=== PATIENT | male | born 1970 | race Two or more races ===

== ENCOUNTER 2023-08-18 13:59 | Inpatient (IN) | payer OTHER ==
[~2023-08-18] VITALS: Ht 170.2 cm; Wt 75.0 kg
[~2023-08-18 13:59] MED LIST: ETOMIDATE 2 MG/ML 10 ML VIAL ONE
[2023-08-18] MEDS: LORazepam 2 MG/ML VIAL IVP ONE ×2 (15:14→16:14)
[2023-08-18] MEDS: SODIUM CHLORIDE 0.9% 2,000 ML IV ONE (15:18)
[2023-08-18 15:28] LABS: BASOPHILS % (AUTO) 0.8 % (0.0-2.0); EOSINOPHILS % (AUTO) 2.2 % (1.0-6.0); HEMATOCRIT 24.8 % (41-53); LYMPHOCYTES # (AUTO) 1.2 K/uL (1.0-4.8); LYMPHOCYTES % (AUTO) 22.2 % (22.0-44.0); MEAN CORPUSCULAR HEMOGLOBIN 29.2 pg (26.0-34.0); MEAN CORPUSCULAR HGB CONC 32.3 G/dL (31.0-37.0); MEAN CORPUSCULAR VOLUME 90 fL (80-100); MONOCYTES # (AUTO) 0.7 K/uL (0.1-1.0); MONOCYTES % (AUTO) 13.6 % (2.0-9.0); NEUTROPHILS # (AUTO) 3.4 K/uL (1.8-7.7); NEUTROPHILS % (AUTO) 61.2 % (40.0-70.0); PLATELET COUNT (AUTO) 225 K/uL (150-450); RED BLOOD CELL COUNT(AUTO) 2.75 MIL/uL (4.50-5.90); WHITE BLOOD COUNT (AUTO) 5.5 K/uL (4.5-11.0)
[2023-08-18 15:38] LABS: ALCOHOL, BLOOD (SERUM) < 3 mg/dL (0-10)
[2023-08-18 15:45] LABS: TROPONIN I-HIGH SENSITIVITY 56 ng/L (<76)
[2023-08-18 15:48] LABS: LACTIC ACID 1.2 mmol/L (0.4-2.0)
[2023-08-18 16:04] LABS: RBC MORPHOLOGY COMMENT ABNORMAL RBC MORPH
[2023-08-18 16:12] LABS: INR 1.1 (0.9-1.1); PROTHROMBIN TIME 11.9 SEC (9.4-11.6)
[2023-08-18 16:33] LABS: ABG BASE EXCESS -9.3 mmol/L (-2.0-3.0); ABG CARBOXYHEMOGLOBIN 0.4 % (0.0-1.5); ABG HCO3 16.9 mmol/L (22.0-26.0); ABG METHEMOGLOBIN 0.5 % (0.0-1.5); ABG OXYGEN CONTENT 5.7 mL/dL (15.0-23.0); ABG OXYHEMOGLOBIN 44.3 % (94.0-100.0); ABG PCO2 32 mmHg (35-45); ABG PH 7.334 (7.35-7.450); ABG TOTAL HEMOGLOBIN 9.1 G/dL (12.0-18.0); TEMPERATURE, FAHRENHEIT, BG 98.6 FAHREN (96.0-98.6)
[2023-08-18] MEDS ORDERED: ROCURONIUM BROMIDE 10 MG/ML 5 ML VIAL ONE (16:40)
[2023-08-18 17:06] LABS: ANION GAP 14 mmol/L (8-16); CALCIUM, TOTAL 7.9 mg/dL (8.8-10.5); CARBON DIOXIDE 17 mmol/L (22-29); CHLORIDE 105 mmol/L (98-107); CREATININE 1.73 mg/dL (0.60-1.30); GLOMERULAR FILTR. RATE CALC 42 mL/min (>60); GLUCOSE,RANDOM 121 mg/dL (70-110); SODIUM SERUM 136 mmol/L (136-145); UREA NITROGEN, BLOOD 32 mg/dL (7-18)
[2023-08-18] MEDS: PROPOFOL 1000 MG/ISO-OSM 100 ML IV PRN (17:09)
[2023-08-18 17:10] VITALS: PULSE 105; RESP 18; O2SAT 100
[2023-08-18 17:11] LABS: ALANINE AMINOTRANSFERASE 47 U/L (12-78); ALBUMIN 2.8 g/dL (3.4-5.0); ALKALINE PHOSPHATASE 186 U/L (46-116); ASPARTATE AMINOTRANSFERASE 47 U/L (15-37); BILIRUBIN,TOTAL 0.7 mg/dL (0.1-1.0); CREATINE KINASE, TOTAL ONLY 125 U/L (39-308); LIPASE 122 U/L (16-77); TOTAL PROTEIN, SERUM 8.7 g/dL (6.4-8.2)
[2023-08-18 17:22] LABS: ABG OXYGEN SATURATION 44.7 % (95.0-98.0)
[2023-08-18 17:23] LABS: O2 DEVICE,BLOOD GAS ROOM AIR (ROOM AIR); PO2, ARTERIAL BG 30.6 mmHg (84.0-92.0); SITE, BLOOD GAS RT BRACHIAL; SOURCE, BLOOD GAS VENOUS
[2023-08-18] MEDS: VANCOMYCIN 1GM/WATER(PEG/NADA) 200 ML IV ONE (17:37)
[2023-08-18] MEDS: SODIUM CHLORIDE 0.9% 2,050 ML IV ONE (17:37)
[2023-08-18 17:39] LABS: COVID AG,FIA SOURCE NASAL SWAB
[2023-08-18 18:06] LABS: SARS-COV2 (COVID) ANTIGEN,FIA Negative (Negative)
[2023-08-18 18:47] LABS: APPEARANCE,URINE CLEAR (CLEAR); BILIRUBIN,URINE NEGATIVE (NEGATIVE); COLOR,URINE YELLOW (YELLOW); GLUCOSE, URINE (UA) NEGATIVE (NEGATIVE); KETONES,URINE NEGATIVE (NEGATIVE); LEUKOCYTE ESTERASE ,URINE NEGATIVE (NEGATIVE); NITRATE,URINE NEGATIVE (NEGATIVE); OCCULT BLOOD,URINE NEGATIVE (NEGATIVE); PH,URINE 5.5 (5.0-8.0); PH,URINE DRUG SCREEN 5.5 (5.0-8.0); PROTEIN,URINE 100-200,SEE CONFIRM mg/dL (NEGATIVE); SPECIFIC GRAVITIY, URINE 1.021 (1.003-1.030); UROBILINOGEN,URINE <=1.0 mg/dL (<=1.0)
[2023-08-18 18:52] LABS: RBC,URINE 0-2 /HPF (0-2); SULFOSALICYLIC ACID,URINE 2+ (Negative); WBC,URINE 0-2 /HPF (0-5)
[2023-08-18 18:53] LABS: ALCOHOL, URINE DRUG SCREEN NEGATIVE (NEGATIVE); AMPHET/METH SCREEN,URINE POSITIVE (NEGATIVE); BACTERIA,URINE Few /HPF (None Seen); BARBITURATE SCREEN, URINE NEGATIVE (NEGATIVE); BENZODIAZEPINES SCREEN,URINE NEGATIVE (NEGATIVE); CANNABINOID SCREEN,URINE NEGATIVE (NEGATIVE); COCAINE SCREEN,URINE NEGATIVE (NEGATIVE); METHADONE SCREEN, URINE NEGATIVE (NEGATIVE); OPIATE SCREEN,URINE NEGATIVE (NEGATIVE); PHENCYCLIDINE SCREEN,URINE NEGATIVE (NEGATIVE); SQUAMOUS EPITHELIAL CELL,UR Rare /LPF (None Seen)
[2023-08-18 19:00] VITALS: PULSE 97; RESP 22; O2SAT 100
[2023-08-18 20:22] LABS: ABG BASE EXCESS -9.6 mmol/L (-2.0-3.0); ABG CARBOXYHEMOGLOBIN 0.6 % (0.0-1.5); ABG HCO3 17.4 mmol/L (22.0-26.0); ABG METHEMOGLOBIN 0.1 % (0.0-1.5); ABG OXYGEN CONTENT 12.9 mL/dL (15.0-23.0); ABG OXYGEN SATURATION 99.4 % (95.0-98.0); ABG OXYHEMOGLOBIN 98.7 % (94.0-100.0); ABG PCO2 34 mmHg (35-45); ABG PH 7.307 (7.35-7.450); PO2, ARTERIAL BG 186.6 mmHg (84.0-92.0); SOURCE, BLOOD GAS ARTERIAL; TEMPERATURE, FAHRENHEIT, BG 98.6 FAHREN (96.0-98.6)
[2023-08-18 20:25] LABS: ABG A-A DIFF O2 131.4 mmHg (10-20.0); ALLEN TEST, BLOOD GAS Positive; O2 DEVICE,BLOOD GAS VENT (ROOM AIR); PEEP,BG 5 cm H2O; SITE, BLOOD GAS LR`; VT, ABG 420 ml
[2023-08-18 22:25] VITALS: PULSE 80; RESP 25; O2SAT 100
[2023-08-18] MEDS: MIDAZOLAM HCL 100 MG in SODIUM CHLORIDE 0.9% 180 ML IV PRN (23:02)
[2023-08-18] MEDS ORDERED: BISACODYL 10 MG RECTAL RECTAL SUPPOSITORY PR PRN (23:45)
[2023-08-18] MEDS ORDERED: ALBUTEROL SULFATE 2.5 MG/0.5 ML NEB SOLUTION NEB PRN (23:45)
[2023-08-18] MEDS ORDERED: IPRATROPIUM BROMIDE 0.5 MG/2.5 ML NEB SOLUTION NEB PRN (23:45)
[2023-08-18] MEDS ORDERED: MAGNESIUM HYDROXIDE SUSPENSION 30 ML UDCUP PO PRN (23:45)
[2023-08-18] MEDS ORDERED: ONDANSETRON HCL 4 MG/2 ML VIAL IVP PRN (23:45)
[2023-08-18] MEDS: HEPARIN SODIUM,PORCINE 5,000 UNITS/ML VIAL SQ SCH (23:56)
[2023-08-19] VITALS (15 sets, daily range): BP systolic 127–148; BP diastolic 72–95; PULSE 72–88; RESP 18–29; TEMP 98.1–99.1; O2SAT 97–100
[2023-08-19] MEDS: DEXMEDETOMIDINE HCL 400 MCG in SODIUM CHLORIDE 0.9% 96 ML IV PRN (01:46)
[2023-08-19] MEDS: PROPOFOL 1000 MG/ISO-OSM 100 ML IV PRN (08:01)
[2023-08-19] MEDS: PANTOPRAZOLE SODIUM 40 MG/VIAL IVP SCH (08:48)
[2023-08-19] MEDS: DOCUSATE SODIUM 100 MG CAPSULE PO SCH (09:00)
[2023-08-19 10:00] LABS: CALCIUM, TOTAL 7.6 mg/dL (8.8-10.5); CREATININE 1.35 mg/dL (0.60-1.30); POTASSIUM 4.1 mmol/L (3.5-5.1)
[2023-08-19 10:06] LABS: ALBUMIN 2.3 g/dL (3.4-5.0); BILIRUBIN,TOTAL 0.8 mg/dL (0.1-1.0); TOTAL PROTEIN, SERUM 7.8 g/dL (6.4-8.2)
[2023-08-19 10:25] LABS: BASOPHILS % (AUTO) 0.7 % (0.0-2.0); EOSINOPHILS % (AUTO) 3.2 % (1.0-6.0); HEMATOCRIT 24.4 % (41-53); HEMOGLOBIN 7.9 g/dL (13.5-17.5); LYMPHOCYTES # (AUTO) 1.1 K/uL (1.0-4.8); LYMPHOCYTES % (AUTO) 19.5 % (22.0-44.0); MEAN CORPUSCULAR HEMOGLOBIN 29.2 pg (26.0-34.0); MEAN CORPUSCULAR HGB CONC 32.2 G/dL (31.0-37.0); MEAN CORPUSCULAR VOLUME 91 fL (80-100); MONOCYTES # (AUTO) 0.7 K/uL (0.1-1.0); MONOCYTES % (AUTO) 11.5 % (2.0-9.0); NEUTROPHILS # (AUTO) 3.7 K/uL (1.8-7.7); NEUTROPHILS % (AUTO) 65.1 % (40.0-70.0); PLATELET COUNT (AUTO) 201 K/uL (150-450); RED CELL DISTRIBUTION WIDTH 24.6 % (11.5-14.5); WHITE BLOOD COUNT (AUTO) 5.7 K/uL (4.5-11.0)
[2023-08-19] MEDS: PIPERACILLIN/TAZO 3.375 GM/D5W 50 ML IV SCH (11:19)
[2023-08-19 13:02] LABS: ABG BASE EXCESS -10.4 mmol/L (-2.0-3.0); ABG CARBOXYHEMOGLOBIN 0.5 % (0.0-1.5); ABG METHEMOGLOBIN 0.2 % (0.0-1.5); ABG OXYGEN CONTENT 12.9 mL/dL (15.0-23.0); ABG OXYGEN SATURATION 95.7 % (95.0-98.0); ABG PCO2 29 mmHg (35-45); ABG PH 7.339 (7.35-7.450); ABG TOTAL HEMOGLOBIN 9.6 G/dL (12.0-18.0); PO2, ARTERIAL BG 90.3 mmHg (84.0-92.0); SOURCE, BLOOD GAS ARTERIAL; TEMPERATURE, FAHRENHEIT, BG 99.7 FAHREN (96.0-98.6)
[2023-08-19 13:03] LABS: ABG A-A DIFF O2 88.9 mmHg (10-20.0); O2 DEVICE,BLOOD GAS VENTILATOR (ROOM AIR); PEEP,BG 0 cm H2O; PRESSURE SUPPORT, BG 5 cm H2O; SITE, BLOOD GAS RT BRACHIAL; SPONTANEOUS VT, BG 422 ml; VENT MODE, BG Press. Support Vent. (ROOM AIR)
[2023-08-19] MEDS: VANCOMYCIN 1.75GM/WATER(PEG) 350 ML IV ONE (17:43)
[2023-08-20] VITALS (15 sets, daily range): BP systolic 108–154; BP diastolic 56–90; PULSE 56–84; RESP 18–28; TEMP 96–99.9; O2SAT 97–100
[2023-08-20] MEDS: ACETAMINOPHEN 325 MG TABLET PO PRN (00:45)
[2023-08-20] MEDS: DEXMEDETOMIDINE HCL 400 MCG in SODIUM CHLORIDE 0.9% 96 ML IV PRN (04:23)
[2023-08-20 06:20] LABS: CALCIUM, TOTAL 7.7 mg/dL (8.8-10.5); CREATININE 1.3 mg/dL (0.60-1.30); POTASSIUM 3.7 mmol/L (3.5-5.1)
[2023-08-20 09:02] LABS: HEMATOCRIT 28.6 % (41-53); HEMOGLOBIN 8.8 g/dL (13.5-17.5); MEAN CORPUSCULAR HEMOGLOBIN 28.9 pg (26.0-34.0); MEAN CORPUSCULAR HGB CONC 30.9 G/dL (31.0-37.0); MEAN CORPUSCULAR VOLUME 94 fL (80-100); PLATELET COUNT (AUTO) 199 K/uL (150-450); RED BLOOD CELL COUNT(AUTO) 3.06 MIL/uL (4.50-5.90); RED CELL DISTRIBUTION WIDTH 25.1 % (11.5-14.5); WHITE BLOOD COUNT (AUTO) 6.8 K/uL (4.5-11.0)
[2023-08-20] MEDS: VANCOMYCIN 1GM/WATER(PEG/NADA) 200 ML IV SCH (09:43)
[2023-08-20] MEDS: FUROSEMIDE 20 MG/2 ML VIAL IVP SCH (09:43)
[2023-08-20] MEDS: QUEtiapine FUMARATE 25 MG TABLET PEG SCH (09:44)
[2023-08-20] MEDS: LISINOPRIL 5 MG TABLET NG SCH (09:44)
[2023-08-20] MEDS: CARVEDILOL 3.125 MG TABLET NG SCH (09:44)
[2023-08-20 10:16] LABS: BAND NEUTROPHILS % (MANUAL) 1 % (0-5); LYMPHOCYTES % (MANUAL) 15 % (22-44); MONOCYTES % (MANUAL) 4 % (2-9); SEGMENTED NEUTROPHILS % 80 % (40-70); TOTAL CELLS COUNTED 100
[2023-08-20 10:21] LABS: RBC MORPHOLOGY COMMENT ABNORMAL R
[2023-08-21] VITALS (9 sets, daily range): BP systolic 123–151; BP diastolic 66–79; PULSE 65–88; RESP 13–22; TEMP 97.3–98.9; O2SAT 90–100
[2023-08-21 08:06] LABS: EOSINOPHILS % (AUTO) 4.7 % (1.0-6.0); HEMATOCRIT 31.3 % (41-53); HEMOGLOBIN 9.5 g/dL (13.5-17.5); LYMPHOCYTES # (AUTO) 1.6 K/uL (1.0-4.8); LYMPHOCYTES % (AUTO) 25.7 % (22.0-44.0); MEAN CORPUSCULAR HEMOGLOBIN 28.6 pg (26.0-34.0); MEAN CORPUSCULAR HGB CONC 30.5 G/dL (31.0-37.0); MEAN CORPUSCULAR VOLUME 94 fL (80-100); MONOCYTES # (AUTO) 0.7 K/uL (0.1-1.0); MONOCYTES % (AUTO) 10.5 % (2.0-9.0); NEUTROPHILS # (AUTO) 3.7 K/uL (1.8-7.7); NEUTROPHILS % (AUTO) 59.1 % (40.0-70.0); PLATELET COUNT (AUTO) 136 K/uL (150-450); RED BLOOD CELL COUNT(AUTO) 3.34 MIL/uL (4.50-5.90); RED CELL DISTRIBUTION WIDTH 25.3 % (11.5-14.5); WHITE BLOOD COUNT (AUTO) 6.3 K/uL (4.5-11.0)
[2023-08-21 08:23] LABS: CREATININE 1.33 mg/dL (0.60-1.30); POTASSIUM 3.8 mmol/L (3.5-5.1); TOTAL PROTEIN, SERUM 7.5 g/dL (6.4-8.2); VANCOMYCIN,RANDOM 32.7 mcg/mL (25.0-50.0)
[2023-08-21 08:42] LABS: RBC MORPHOLOGY COMMENT ABNORMAL RBC MORPH
[2023-08-21] MEDS ORDERED: VANCOMYCIN 1GM/WATER(PEG/NADA) 200 ML IV PRN (10:15)
[2023-08-21 12:19] LABS: ABG BASE EXCESS -7.9 mmol/L (-2.0-3.0); ABG CARBOXYHEMOGLOBIN 1.5 % (0.0-1.5); ABG OXYGEN CONTENT 18.3 mL/dL (15.0-23.0); ABG OXYGEN SATURATION 97.3 % (95.0-98.0); ABG OXYHEMOGLOBIN 95.8 % (94.0-100.0); ABG PCO2 30 mmHg (35-45); ABG PH 7.375 (7.35-7.450); ABG TOTAL HEMOGLOBIN 13.5 G/dL (12.0-18.0); ALLEN TEST, BLOOD GAS Positive; PO2, ARTERIAL BG 97.8 mmHg (84.0-92.0); SITE, BLOOD GAS RT RADIAL; SOURCE, BLOOD GAS ARTERIAL; TEMPERATURE, FAHRENHEIT, BG 97.8 FAHREN (96.0-98.6)
[2023-08-21 12:20] LABS: O2 DEVICE,BLOOD GAS VENTILATOR (ROOM AIR); PEEP,BG 0 cm H2O; PRESSURE SUPPORT, BG 8 cm H2O; VENT MODE, BG CPAP (ROOM AIR)
[2023-08-21 12:21] LABS: SPONTANEOUS VT, BG 537 ml
[2023-08-22] VITALS: BP 139/74; PULSE 92; RESP 17; TEMP 97.1
[2023-08-22] MEDS: ZOLPIDEM TARTRATE 5 MG TABLET PO PRN (00:09)
[2023-08-22 04:00] VITALS: BP 153/87; PULSE 94; RESP 19; TEMP 99
[2023-08-22 05:43] LABS: BASOPHILS % (AUTO) 0.8 % (0.0-2.0); EOSINOPHILS % (AUTO) 4.9 % (1.0-6.0); HEMATOCRIT 26.7 % (41-53); HEMOGLOBIN 8.5 g/dL (13.5-17.5); LYMPHOCYTES # (AUTO) 1.3 K/uL (1.0-4.8); LYMPHOCYTES % (AUTO) 22.9 % (22.0-44.0); MEAN CORPUSCULAR HEMOGLOBIN 28.9 pg (26.0-34.0); MEAN CORPUSCULAR HGB CONC 31.8 G/dL (31.0-37.0); MEAN CORPUSCULAR VOLUME 91 fL (80-100); MONOCYTES # (AUTO) 0.6 K/uL (0.1-1.0); MONOCYTES % (AUTO) 10.3 % (2.0-9.0); NEUTROPHILS # (AUTO) 3.5 K/uL (1.8-7.7); NEUTROPHILS % (AUTO) 61.1 % (40.0-70.0); PLATELET COUNT (AUTO) 173 K/uL (150-450); RED BLOOD CELL COUNT(AUTO) 2.94 MIL/uL (4.50-5.90); WHITE BLOOD COUNT (AUTO) 5.7 K/uL (4.5-11.0)
[2023-08-22 05:44] LABS: CALCIUM, TOTAL 8.1 mg/dL (8.8-10.5); CREATININE 1.33 mg/dL (0.60-1.30); POTASSIUM 3.4 mmol/L (3.5-5.1)
[2023-08-22 08:00] VITALS: BP 153/78; PULSE 89; PULSE 92; RESP 14; TEMP 97.4
[2023-08-22] MEDS: VANCOMYCIN 1.25 GM/WATER(PEG) 250 ML IV SCH (08:19)
[2023-08-22 12:00] VITALS: BP 157/85; PULSE 100; PULSE 88; RESP 16; TEMP 98.4
[2023-08-22] MEDS: CARVEDILOL 3.125 MG TABLET PO ONE (13:16)
[2023-08-22] MEDS: POTASSIUM CHLORIDE 20 MEQ ER TABLET PO ONE (13:16)
[2023-08-22 16:00] VITALS: BP 148/80; PULSE 84; RESP 12; TEMP 98.2
[2023-08-22 20:00] VITALS: BP 159/91; PULSE 85; RESP 10; TEMP 98.1
[2023-08-22] MEDS: CARVEDILOL 6.25 MG TABLET PO SCH (21:12)
[2023-08-23] VITALS: BP 143/89; PULSE 83; RESP 16; TEMP 98.3
[2023-08-23] MEDS: MORPHINE SULFATE 2 MG/ML SYRINGE IVP ONE (03:13)
[2023-08-23 04:00] VITALS: BP 160/93; PULSE 82; RESP 10; TEMP 98.4
[2023-08-23 07:18] LABS: CALCIUM, TOTAL 7.7 mg/dL (8.8-10.5); CREATININE 1.65 mg/dL (0.60-1.30); POTASSIUM 3.5 mmol/L (3.5-5.1)
[2023-08-23 08:00] VITALS: BP 198/99; PULSE 81; PULSE 88; RESP 18; TEMP 98.7
[2023-08-23 12:00] VITALS: BP 161/100; PULSE 81; RESP 16; TEMP 98.4
[2023-08-23] MEDS: BISMUTH SUBSALICYLATE 525 MG/30 ML SUSPENSION UDCUP PO PRN (14:10)
[2023-08-23 16:00] VITALS: BP 176/107; PULSE 87; RESP 16; TEMP 98.6
[2023-08-23 20:00] VITALS: BP 145/71; PULSE 84; RESP 18; TEMP 97.7
[2023-08-24 00:16] VITALS: BP 113/64; PULSE 83; RESP 16; TEMP 98
[2023-08-24 04:00] VITALS: BP 112/57; PULSE 85; RESP 14; TEMP 97.6
[2023-08-24 06:33] LABS: BASOPHILS % (AUTO) 0.4 % (0.0-2.0); EOSINOPHILS % (AUTO) 4.3 % (1.0-6.0); HEMATOCRIT 27.2 % (41-53); HEMOGLOBIN 8.8 g/dL (13.5-17.5); LYMPHOCYTES # (AUTO) 1.8 K/uL (1.0-4.8); LYMPHOCYTES % (AUTO) 27.3 % (22.0-44.0); MEAN CORPUSCULAR HEMOGLOBIN 28.4 pg (26.0-34.0); MEAN CORPUSCULAR HGB CONC 32.5 G/dL (31.0-37.0); MEAN CORPUSCULAR VOLUME 88 fL (80-100); MONOCYTES # (AUTO) 0.9 K/uL (0.1-1.0); MONOCYTES % (AUTO) 13.2 % (2.0-9.0); NEUTROPHILS # (AUTO) 3.7 K/uL (1.8-7.7); NEUTROPHILS % (AUTO) 54.8 % (40.0-70.0); PLATELET COUNT (AUTO) 166 K/uL (150-450); RED BLOOD CELL COUNT(AUTO) 3.11 MIL/uL (4.50-5.90); RED CELL DISTRIBUTION WIDTH 22.7 % (11.5-14.5); WHITE BLOOD COUNT (AUTO) 6.7 K/uL (4.5-11.0)
[2023-08-24 06:35] LABS: CREATININE 1.64 mg/dL (0.60-1.30); POTASSIUM 3.3 mmol/L (3.5-5.1)
[2023-08-24 06:43] LABS: RBC MORPHOLOGY COMMENT ABNORMAL RBC MORPH
[2023-08-24 08:00] VITALS: BP 159/98; PULSE 81; PULSE 86; RESP 16; TEMP 97.9
[2023-08-24] MEDS: POTASSIUM CHLORIDE 20 MEQ ER TABLET PO ONE (09:13)
[2023-08-24 15:00] VITALS: BP 145/90; PULSE 86; RESP 18; TEMP 97.6
[2023-08-24] MEDS ORDERED: SODIUM CHLORIDE 0.9% 500 ML IV ONE (17:46)
[2023-08-24] MEDS: VANCOMYCIN 500 MG/WATER(PEG) 100 ML IV ONE (18:06)
[2023-08-24 19:32] VITALS: BP 156/90; PULSE 100; RESP 18; TEMP 98.5
[2023-08-24 23:23] VITALS: BP 141/88; PULSE 97; RESP 18; TEMP 97.9
[2023-08-25 04:03] VITALS: BP 140/81; PULSE 93; RESP 18; TEMP 97.9
[2023-08-25 06:15] LABS: CALCIUM, TOTAL 7.7 mg/dL (8.8-10.5); CREATININE 1.52 mg/dL (0.60-1.30); POTASSIUM 3.6 mmol/L (3.5-5.1)
[2023-08-25 06:19] LABS: BASOPHILS % (AUTO) 0.7 % (0.0-2.0); EOSINOPHILS % (AUTO) 3.5 % (1.0-6.0); HEMATOCRIT 25.6 % (41-53); HEMOGLOBIN 8.4 g/dL (13.5-17.5); LYMPHOCYTES # (AUTO) 1.6 K/uL (1.0-4.8); LYMPHOCYTES % (AUTO) 31.2 % (22.0-44.0); MEAN CORPUSCULAR HEMOGLOBIN 30.4 pg (26.0-34.0); MEAN CORPUSCULAR HGB CONC 32.8 G/dL (31.0-37.0); MEAN CORPUSCULAR VOLUME 93 fL (80-100); MONOCYTES # (AUTO) 0.7 K/uL (0.1-1.0); MONOCYTES % (AUTO) 13.1 % (2.0-9.0); NEUTROPHILS # (AUTO) 2.7 K/uL (1.8-7.7); NEUTROPHILS % (AUTO) 51.5 % (40.0-70.0); PLATELET COUNT (AUTO) 143 K/uL (150-450); RED BLOOD CELL COUNT(AUTO) 2.77 MIL/uL (4.50-5.90); RED CELL DISTRIBUTION WIDTH 22.8 % (11.5-14.5); WHITE BLOOD COUNT (AUTO) 5.2 K/uL (4.5-11.0)
[2023-08-25 06:24] LABS: RBC MORPHOLOGY COMMENT ABNORMAL RBC MORPH
[2023-08-25 07:34] VITALS: BP 139/86; PULSE 91; RESP 18; TEMP 97.3
[2023-08-25] MEDS ORDERED: DiphenhydrAMINE HCL 50 MG/ML VIAL ONE (08:18)
[2023-08-25 09:02] LABS: SPECIMENTYPE,BODY FLUID PLEURAL
[2023-08-25] MEDS: VANCOMYCIN 750 MG/WATER(PEG) 150 ML IV SCH (09:39)
[2023-08-25] MEDS: DiphenhydrAMINE HCL 50 MG/ML VIAL IVP ONE (10:26)
[2023-08-25 11:49] LABS: APPEARANCE,SPUN,BODY FLUID CLEAR (CLEAR); APPEARANCE,UNSPUN,BODY FLUID HAZY (CLEAR); BODY FLUID RBC 11.7 /cu. mm.; COLOR,BODY FLUID YELLOW (LT YELLOW); NEUTROPHILS,BODY FLUID 38 %; TOTAL VOLUME,BODY FLUID 1100 mL; WBC, BODY FLUID 30.55 /cu. mm.
[2023-08-25 11:50] LABS: BASOPHILS,BODY FLUID 0 %; EOSINOPHILS,BF (ANAL) 0 %; LYMPHOCYTES,BODY FLUID 49 %; MONOCYTES,BODY FLUID 13 %
[2023-08-26 03:27] VITALS: BP 138/92; PULSE 93; RESP 18; TEMP 97.6
[2023-08-26 06:25] LABS: ANION GAP 9 mmol/L (8-16); CALCIUM, TOTAL 7.9 mg/dL (8.8-10.5); CARBON DIOXIDE 23 mmol/L (22-29); CHLORIDE 106 mmol/L (98-107); GLOMERULAR FILTR. RATE CALC > 60 mL/min (>60); GLUCOSE,RANDOM 100 mg/dL (70-110); POTASSIUM 3.8 mmol/L (3.5-5.1); SODIUM SERUM 138 mmol/L (136-145); UREA NITROGEN, BLOOD 18 mg/dL (7-18)
[2023-08-26 08:43] VITALS: BP 144/93; PULSE 95; RESP 18; TEMP 98.1
[2023-08-26] MEDS: PANTOPRAZOLE SODIUM 40 MG DR TABLET PO SCH (08:56)
[2023-08-26 10:45] LABS: BASOPHILS % (AUTO) 0.9 % (0.0-2.0); EOSINOPHILS % (AUTO) 2.9 % (1.0-6.0); HEMATOCRIT 26.6 % (41-53); HEMOGLOBIN 8.5 g/dL (13.5-17.5); LYMPHOCYTES # (AUTO) 1.6 K/uL (1.0-4.8); LYMPHOCYTES % (AUTO) 30.2 % (22.0-44.0); MEAN CORPUSCULAR HEMOGLOBIN 28.9 pg (26.0-34.0); MEAN CORPUSCULAR HGB CONC 32.1 G/dL (31.0-37.0); MEAN CORPUSCULAR VOLUME 90 fL (80-100); MONOCYTES # (AUTO) 0.7 K/uL (0.1-1.0); MONOCYTES % (AUTO) 13.2 % (2.0-9.0); NEUTROPHILS # (AUTO) 2.9 K/uL (1.8-7.7); NEUTROPHILS % (AUTO) 52.8 % (40.0-70.0); PLATELET COUNT (AUTO) 146 K/uL (150-450); RED BLOOD CELL COUNT(AUTO) 2.96 MIL/uL (4.50-5.90); RED CELL DISTRIBUTION WIDTH 22.9 % (11.5-14.5); WHITE BLOOD COUNT (AUTO) 5.5 K/uL (4.5-11.0)
[2023-08-26 11:22] VITALS: BP 150/93; PULSE 94; RESP 18; TEMP 97.7
[2023-08-26 12:45] LABS: RBC MORPHOLOGY COMMENT ABNORMAL RBC MORPH
[2023-08-26 14:07] LABS: TOTAL PROTEIN,BODY FLUID,REF 2.6 g/dL
[2023-08-26 15:33] VITALS: BP 150/81; PULSE 91; RESP 18; TEMP 98.1
== END 2023-08-26 16:00 | DRG 917 ==
LOC: EMS 13:59 → ICU 19:52 → 6N 19:52 → UNDOADMIN 19:52 → 5N 08-24 11:50
PROVIDERS: ADMIT Hospitalist; ATTEND Hospitalist
PROC: 5A1945Z Respiratory Ventilation, 24-96 Consecutive Hours (ICD-10-PCS; principal; 2023-08-18)
PROC: 0BH17EZ Insertion of Endotracheal Airway into Trachea, Via Natural or Artificial Opening (ICD-10-PCS; 2023-08-18)
PROC: 05HC33Z Insertion of Infusion Device into Left Basilic Vein, Percutaneous Approach (ICD-10-PCS; 2023-08-23)
PROC: 0W993ZZ Drainage of Right Pleural Cavity, Percutaneous Approach (ICD-10-PCS; 2023-08-25)
DX: T40.411A Poisoning by fentanyl or fentanyl analogs, accidental (unintentional), initial encounter (principal); I50.23 Acute on chronic systolic (congestive) heart failure; J69.0 Pneumonitis due to inhalation of food and vomit; J96.00 Acute respiratory failure, unspecified whether with hypoxia or hypercapnia; N17.9 Acute kidney failure, unspecified; I42.9 Cardiomyopathy, unspecified; J91.8 Pleural effusion in other conditions classified elsewhere; L03.116 Cellulitis of left lower limb; Z20.822 Contact with and (suspected) exposure to COVID-19; F19.10 Other psychoactive substance abuse, uncomplicated; K74.60 Unspecified cirrhosis of liver; D64.9 Anemia, unspecified; I07.1 Rheumatic tricuspid insufficiency; E86.0 Dehydration; Z88.5 Allergy status to narcotic agent; Y92.89 Other specified places as the place of occurrence of the external cause
CPT/HCPCS: 32555; 36245; 36569; 36600; 70450; 71045; 71250; 72192; 74018; 74150; 76937; 76942; 80048; 80053; 80202; 80307; 81001; 81002; 82271; 82465; 82550; 82805; 82945; 83605; 83615; 83690; 83880; 83986; 84132; 84145; 84155; 84157; 84484; 85025; 85610; 87015; 87040; 87075; 87081; 87086; 87101; 87186; 87205; 87206; 89051; 92610; 93005; 93306; 94002; 94003; 97116; 97162; 97165; 97530; 97535; 99285; C9113; G0480; J1200; J1644; J1940; J2060; J2250; J2270; J2543; J2704; J3490; J7040; J7050; Q9967; 36415-L1; 36415-TC; 87070